=== PATIENT | female | born 1970 | race Caucasian/White ===

== ENCOUNTER 2018-01-17 08:32 | Emergency (ER) | payer MEDICAID, SELFPAY ==
[2018-01-17 08:38] VITALS: BP 110/51; PULSE 60; RESP 16; TEMP 36.5; O2SAT 100
[2018-01-17 08:46] LABS: Bilirubin Negative (Negative); Blood Moderate (Negative); Clarity Clear; Glucose Negative (Negative); Ketones Negative (Negative); Leukocyte Esterase Negative (Negative); Nitrite Negative (Negative); Specific Gravity 1.015 (1.005-1.025); Urobilinogen 0.2 EU/dL (Up TO 0.2)
--- NOTE | 2018-01-17 08:49 | DI.CT_ITS ---
SYMPTOM/DIAGNOSIS: LEFT FLANK PAIN ABDOMINAL, PELVIC CT 01/17 CT examination of the abdomen and pelvis was performed without contrast administration. Images obtained through the lung bases are unremarkable. The visualized portions of the liver and spleen appear normal. Gallbladder and bile ducts are CT normal. Abdominal aorta is of normal diameter. No gross abdominal adenopathy seen. No abdominal wall hernia seen. Appendix is normal. No evidence of diverticulitis or bowel obstruction. Adrenals and kidneys appear normal. No hydronephrosis, nephrolithiasis or ureterolithiasis. Urinary bladder is essentially empty. CONCLUSION: Negative abdominal and pelvic CT without contrast administration.
--- NOTE | 2018-01-17 08:51 | W.ED.GENAD ---
Discharge Plan Discharge Details Chief Complaint: FlankPain Primary Care Provider: Agustin Briceno ED Provider: Kaveh Funk Home Meds and New Rx's Prescriptions: No Action sumatriptan succinate [Imitrex] 50 MG tablet 50 mg PO PRN PRNRF: 0 Medical Decision Making Pleasant 47-year-old female with days of intermittent left flank pain that radiates to her groin. She is in some discomfort on exam and tender to percussion in the left flank. Concerning for left ureteral colic versus UTI/pyelonephritis. Patient had IV access established, given fluid bolus and analgesic. Further laboratory testing and CT imaging. She has + hematuria, labs otherwise reassuring. Improved with ketorolac. Patient's laboratories are essentially notable only for hematuria. Her CT did not reveal clear ureteral distention or calculus. She was referred for CT urogram. This reveals no mass or hydronephrosis. The distal portion of the left ureter there is question of 1 mm stone. Patient's pain improved. She is appropriate outpatient management of probable left ureteral colic While in the ED, the patient admitted to some increased depression and stress due to ongoing divorce proceedings and recent of her grandmother. She was seen by [place] and will be offered resources for community connections. She denies any suicidality. She stable for outpatient management at this time; to follow-up with outpatient counseling Lab Data Lab results reviewed: Yes I reviewed the patient's lab results. Laboratory Tests Range/Units 01/17/18 01/17/18 01/17/18 08:40 08:58 08:58 WBC (4.4-10.8) k/cumm 4.85 RBC (4.00-5.20) m/cumm 4.11 Hgb (12.0-15.5) g/dL 12.6 Hct (36.0-46.0) % 38.5 MCV (80-95) fL 93.7 MCH (27.0-33.0) pg 30.7 MCHC (32.0-36.0) g/dL 32.7 RDW (11.7-14.6) % 13.2 Plt Count (130-400) x1000/uL 282 MPV (8.0-11.0) fL 10.2 Immature Gran % 0.0 Neutrophils % 56.9 Lymphocytes % 30.9 Monocytes % 9.3 Eosinophils % 2.3 Basophils % 0.6 Absolute Neutrophils (1.2-6.7) k/cumm 2.76 Absolute Lymphocytes (1.2-3.4) k/cumm 1.50 Absolute Monocytes (0.11-0.7) k/cumm 0.45 Absolute Eosinophils (0.0-0.7) k/cumm 0.11 Absolute Basophils (0.0-0.2) k/cumm 0.03 Sodium (136-145) mmol/L 140 Potassium (3.5-5.1) mmol/L 3.5 Chloride (98-107) mmol/L 103 Carbon Dioxide (21.0-32.0) mmol/L 28.7 Anion Gap (3-11) mmol/L 8.3 BUN (7-18) mg/dL 11 Creatinine (0.55-1.02) mg/dL 0.77 Estimated GFR/1.73 m2 (mL/min/1.73m2) >= 60.00 Glucose (70-100) mg/dL 73 Calcium (8.5-10.1) mg/dL 9.3 Total Bilirubin (0.2-1.0) mg/dL 0.4 AST (15-37) U/L 11 L ALT (12-78) U/L 17 Alkaline Phosphatase (46-116) U/L 45 L Total Protein (6.4-8.2) g/dL 7.8 Albumin (3.4-5.0) g/dL 4.1 Urine Color (Yellow) Yellow Urine Clarity Clear Urine pH (5-8) 7.0 Ur Specific [place] (1.005-1.025) 1.015 Urine Protein (Negative) mg/dL Negative Urine Ketones (Negative) mg/dL Negative Urine Blood (Negative) Moderate H Urine Nitrite (Negative) Negative Urine Bilirubin (Negative) Negative Urine Urobilinogen (Up TO 0.2) EU/dL 0.2 Ur Leukocyte Esterase (Negative) Negative Urine RBC (0-2) 3-5 H Urine WBC (0-5) HPF 0-2 Ur Epithelial Cells (Negative) HPF Moderate Urine Crystals (Negative) HPF Negative Urine Bacteria (Negative) HPF Few Urine Casts (Negative) LPF Negative Urine Mucus (Negative) Trace Ur Culture Indicated? No Urine Glucose (Negative) mg/dL Negative HPI General Mode of arrival: ambulatory. Date/Time Provider Initiated Documentation: 01/17/18 08:40. Limitations to Documentation: no limitations. Information obtained by: patient. History of Present Illness 47 year old F presents to the emergency department with the chief complaint of Left flank pain, described as moderate and severe, Quality is described as sharp, and is localized to the abdomen and left. Patient abdomen and flank. Patient started experiencing this day(s) and it has been intermittent. No relieving factors improve symptom(s), No exacerbating factors reported . Patient notes denies fever/chills. Patient did receive the following treatments prior to arrival, NSAID HPI Narrative: 47-year-old female with stuttering episodes of severe colicky left flank pain that radiates to her groin over days time. Increased today at work and presents the ER. She has not had a fever or vomiting. She has had intermittent and irregular menses over the past months. Related Data Home Medications Medication Instructions Recorded Confirmed sumatriptan succinate [Imitrex] 50 mg PO PRN PRN 03/15/16 01/17/18 Allergies Allergy/AdvReac Type Severity Reaction Status Date / Time No Known Allergies Allergy Unverified 01/17/18 09:06 Review of Systems Review of Systems 8 systems reviewed and otherwise negative [facility] Social History Smoking/Tobacco Use Status: Never Exam Narrative Exam Narrative: GEN: awake, alert, oriented 3. Pleasant, well groomed, interactive, uncomfortable. HEAD: Normocephalic, atraumatic ENT: Mucous membranes moist, oropharynx unremarkable, External ear exam unremarkable EYES: PERRL, EOMI NECK: Full ROM, no RENA, no menigismus CHEST/RESP: Nontender, clear to auscultation bilateral, no wheeze/rhonchi/rales CARDIOVASCULAR: RRR, no murmur, rub chad. 2+ Rad pulse bilateral ABDOMEN: Soft, 4 quadrants tender to palpation without rebound or guarding, no mass. +Bowel sounds. Back: Left flank/CVA tenderness to percussion EXT: Full ROM, no edema, no rash Neuro: Grossly normal neurologic exam, conversant, interactive. Psych: Speech fluent, thoughts congruent, affect normal Course Lab/Test Results Lab/Test Results: Laboratory Tests Range/Units 01/17/18 08:40 Urine Color (Yellow) Yellow Urine Clarity Clear Urine pH (5-8) 7.0 Ur Specific [place] (1.005-1.025) 1.015 Urine Protein (Negative) mg/dL Negative Urine Ketones (Negative) mg/dL Negative Urine Blood (Negative) Moderate H Urine Nitrite (Negative) Negative Urine Bilirubin (Negative) Negative Urine Urobilinogen (Up TO 0.2) EU/dL 0.2 Ur Leukocyte Esterase (Negative) Negative Urine Glucose (Negative) mg/dL Negative
--- NOTE | 2018-01-17 08:54 | ED.GENADUL_ITS ---
Discharge Plan Discharge Details Chief Complaint: FlankPain Primary Care Provider: Agustin Briceno ED Provider: Kaveh Funk Home Meds and New Rx's Prescriptions: No Action sumatriptan succinate [Imitrex] 50 MG tablet 50 mg PO PRN PRNRF: 0 Medical Decision Making Pleasant 47-year-old female with days of intermittent left flank pain that radiates to her groin. She is in some discomfort on exam and tender to percussion in the left flank. Concerning for left ureteral colic versus UTI/ pyelonephritis. Patient had IV access established, given fluid bolus and analgesic. Further laboratory testing and CT imaging. She has + hematuria, labs otherwise reassuring. Improved with ketorolac. Patient's laboratories are essentially notable only for hematuria. Her CT did not reveal clear ureteral distention or calculus. She was referred for CT urogram. This reveals no mass or hydronephrosis. The distal portion of the left ureter there is question of 1 mm stone. Patient's pain improved. She is appropriate outpatient management of probable left ureteral colic While in the ED, the patient admitted to some increased depression and stress due to ongoing divorce proceedings and recent of her grandmother. She was seen by [place] and will be offered resources for community connections. She denies any suicidality. She stable for outpatient management at this time; to follow-up with outpatient counseling Lab Data Lab results reviewed: Yes I reviewed the patient's lab results. Laboratory Tests Range/Units 01/17/18 01/17/18 01/17/18 08:40 08:58 08:58 WBC (4.4-10.8) k/cumm 4.85 RBC (4.00-5.20) m/cumm 4.11 Hgb (12.0-15.5) g/dL 12.6 Hct (36.0-46.0) % 38.5 MCV (80-95) fL 93.7 MCH (27.0-33.0) pg 30.7 MCHC (32.0-36.0) g/dL 32.7 RDW (11.7-14.6) % 13.2 Plt Count (130-400) x1000/uL 282 MPV (8.0-11.0) fL 10.2 Immature Gran % 0.0 Neutrophils % 56.9 Lymphocytes % 30.9 Monocytes % 9.3 Eosinophils % 2.3 Basophils % 0.6 Absolute Neutrophils (1.2-6.7) k/cumm 2.76 Absolute Lymphocytes (1.2-3.4) k/cumm 1.50 Absolute Monocytes (0.11-0.7) k/cumm 0.45 Absolute Eosinophils (0.0-0.7) k/cumm 0.11 Absolute Basophils (0.0-0.2) k/cumm 0.03 Sodium (136-145) mmol/L 140 Potassium (3.5-5.1) mmol/L 3.5 Chloride (98-107) mmol/L 103 Carbon Dioxide (21.0-32.0) mmol/L 28.7 Anion Gap (3-11) mmol/L 8.3 BUN (7-18) mg/dL 11 Creatinine (0.55-1.02) mg/dL 0.77 Estimated GFR/1.73 m2 (mL/min/1.73m2) >= 60.00 Glucose (70-100) mg/dL 73 Calcium (8.5-10.1) mg/dL 9.3 Total Bilirubin (0.2-1.0) mg/dL 0.4 AST (15-37) U/L 11 L ALT (12-78) U/L 17 Alkaline Phosphatase (46-116) U/L 45 L Total Protein (6.4-8.2) g/dL 7.8 Albumin (3.4-5.0) g/dL 4.1 Urine Color (Yellow) Yellow Urine Clarity Clear Urine pH (5-8) 7.0 Ur Specific [place] (1.005-1.025) 1.015 Urine Protein (Negative) mg/dL Negative Urine Ketones (Negative) mg/dL Negative Urine Blood (Negative) Moderate H Urine Nitrite (Negative) Negative Urine Bilirubin (Negative) Negative Urine Urobilinogen (Up TO 0.2) EU/dL 0.2 Ur Leukocyte Esterase (Negative) Negative Urine RBC (0-2) 3-5 H Urine WBC (0-5) HPF 0-2 Ur Epithelial Cells (Negative) HPF Moderate Urine Crystals (Negative) HPF Negative Urine Bacteria (Negative) HPF Few Urine Casts (Negative) LPF Negative Urine Mucus (Negative) Trace Ur Culture Indicated? No Urine Glucose (Negative) mg/dL Negative HPI General Mode of arrival: ambulatory . Date/Time Provider Initiated Documentation: 01/17/18 08:40 . Limitations to Documentation: no limitations . Information obtained by: patient . History of Present Illness 47 year old F presents to the emergency department with the chief complaint of Left flank pain, described as moderate and severe, Quality is described as sharp, and is localized to the abdomen and left. Patient abdomen and flank. Patient started experiencing this day(s) and it has been intermittent. No relieving factors improve symptom(s), No exacerbating factors reported . Patient notes denies fever/chills. Patient did receive the following treatments prior to arrival, NSAID HPI Narrative: 47-year-old female with stuttering episodes of severe colicky left flank pain that radiates to her groin over days time. Increased today at work and presents the ER. She has not had a fever or vomiting. She has had intermittent and irregular menses over the past months. Related Data Home Medications Medication Instructions Recorded Confirmed sumatriptan succinate [Imitrex] 50 mg PO PRN PRN 03/15/16 01/17/18 Allergies Allergy/AdvReac Type Severity Reaction Status Date / Time No Known Allergies Allergy Unverified 01/17/18 09:06 Review of Systems Review of Systems 8 systems reviewed and otherwise negative [facility] Social History Smoking/Tobacco Use Status: Never Exam Narrative Exam Narrative: GEN: awake, alert, oriented 3. Pleasant, well groomed, interactive, uncomfortable. HEAD: Normocephalic, atraumatic ENT: Mucous membranes moist, oropharynx unremarkable, External ear exam unremarkable EYES: PERRL, EOMI NECK: Full ROM, no RENA, no menigismus CHEST/RESP: Nontender, clear to auscultation bilateral, no wheeze/rhonchi/rales CARDIOVASCULAR: RRR, no murmur, rub chad. 2+ Rad pulse bilateral ABDOMEN: Soft, 4 quadrants tender to palpation without rebound or guarding, no mass. +Bowel sounds. Back: Left flank/CVA tenderness to percussion EXT: Full ROM, no edema, no rash Neuro: Grossly normal neurologic exam, conversant, interactive. Psych: Speech fluent, thoughts congruent, affect normal Course Lab/Test Results Lab/Test Results: Laboratory Tests Range/Units 01/17/18 08:40 Urine Color (Yellow) Yellow Urine Clarity Clear Urine pH (5-8) 7.0 Ur Specific [place] (1.005-1.025) 1.015 Urine Protein (Negative) mg/dL Negative Urine Ketones (Negative) mg/dL Negative Urine Blood (Negative) Moderate H Urine Nitrite (Negative) Negative Urine Bilirubin (Negative) Negative Urine Urobilinogen (Up TO 0.2) EU/dL 0.2 Ur Leukocyte Esterase (Negative) Negative Urine Glucose (Negative) mg/dL Negative
[2018-01-17 08:56] LABS: Bacteria Few HPF (Negative); C & S Indicated? No; Casts Negative LPF (Negative); Crystals Negative HPF (Negative); Epithelial Cells Moderate HPF (Negative); Mucus Trace (Negative); WBC 0-2 HPF (0-5)
[2018-01-17] MEDS: Normal Saline 1,000 ML 1000 ML IV (09:00)
[2018-01-17] MEDS: Ketorolac 30 MG/ML VIAL IVP (09:05)
[2018-01-17 09:06] LABS: Absolute Basophil Count 0.03 k/cumm (0.0-0.2); Absolute Eosinophil Count 0.11 k/cumm (0.0-0.7); Absolute Monocyte Count 0.45 k/cumm (0.11-0.7); Absolute Neutrophil Count 2.76 k/cumm (1.2-6.7); Basophils % 0.6; Eosinophils % 2.3; HCT 38.5 % (36.0-46.0); HGB 12.6 g/dL (12.0-15.5); Lymphocytes % 30.9; Mean Corp. HGB Concentration 32.7 g/dL (32.0-36.0); Mean Corpuscular Hemoglobin 30.7 pg (27.0-33.0); Mean Corpuscular Volume 93.7 fL (80-95); Mean Platelet Volume 10.2 fL (8.0-11.0); Monocytes % 9.3; Neutrophils % 56.9; Platelet Count 282 x1000/uL (130-400); RBC 4.11 m/cumm (4.00-5.20); RBC Distribution Width 13.2 % (11.7-14.6); White Blood Cell Count 4.85 k/cumm (4.4-10.8)
[2018-01-17 09:20] LABS: ALT 17 U/L (12-78); AST 11 U/L (15-37); Albumin 4.1 g/dL (3.4-5.0); Alkaline Phosphatase 45 U/L (46-116); Anion Gap 8.3 mmol/L (3-11); BUN 11 mg/dL (7-18); Bilirubin, Total 0.4 mg/dL (0.2-1.0); CO2 28.7 mmol/L (21.0-32.0); CREATININE 0.77 mg/dL (0.55-1.02); Calcium 9.3 mg/dL (8.5-10.1); Chloride 103 mmol/L (98-107); Glucose 73 mg/dL (70-100); Potassium 3.5 mmol/L (3.5-5.1); Sodium 140 mmol/L (136-145); Total Protein 7.8 g/dL (6.4-8.2)
[2018-01-17] MEDS: HYDROmorphone 2 MG/ML VIAL 0.5 MG IVP (09:59)
--- NOTE | 2018-01-17 10:15 | DI.CT_ITS ---
SYMPTOM/DIAGNOSIS: LT PAIN AND HEMATURIA CT UROGRAM: 01/17 CT urography was performed to compliment the noncontrast abdominal and pelvic CT obtained earlier today. Multiple pelvic phleboliths are present and it was impossible to entirely exclude intra-ureteral stone on the noncontrast examination. Venous phase, 7 minute delay, and 15 minute delay imaging was performed. The right hepatic lobe contains approximately 1 cm in diameter enhancing lesion on venous phase imaging which becomes iso-attenuating with surrounding hepatic parenchyma on 7-minute delayed imaging consistent with hepatic hemangioma Otherwise, liver, spleen, pancreas and adrenals are unremarkable in appearance. Gallbladder and bile ducts are CT normal. No abdominal or pelvic adenopathy seen. No abdominal wall hernia seen. Appendix is normal and no focal bowel pathology is seen. There is normal symmetrical enhancement of renal cortical parenchyma bilaterally on venous and delayed phase imaging. No renal mass identified. Probable tiny right renal cortical cyst noted. There is no hydronephrosis or hydroureter. No intraluminal filling defect of the collecting systems or ureters seen. The entire right ureter is opacified and appears normal with visible opacified jet of urine in the urinary bladder. Distal left ureter is poorly opacified on 7 and 15 minute delayed images. The course of the ureter appears to be separate from although directly adjacent to existing noted pelvic phleboliths. On the 15 minute delay images only there is a tiny marisol of high attenuation at the ureteral orifice of the urinary bladder. The possibility of tiny calcification which has traversed the ureter to lie in the intramural portion of the distal ureter could not be entirely excluded. Again, no ureteral opacified jet identified. CONCLUSION: Findings suspicious for very tiny, perhaps 1 mm in diameter, nonobstructing stone of the distal left ureter. Alternatively the findings may represent transient opacified urine. Clinical correlation requested.
[2018-01-17] MEDS: Omnipaque 350 MG/ML 100 ML BTL IJ (11:22)
[2018-01-17 11:35] VITALS: BP 120/51; PULSE 63; RESP 17; TEMP 36.6; O2SAT 100
== END 2018-01-17 12:20 | disposition home or self-care (01) ==
PROVIDERS: Emergency Provider Emergency Medicine; PCP Nurse Practitioner Family
DX: R31.9 Hematuria, unspecified (principal); N20.1 Calculus of ureter
CPT/HCPCS: 36415; 80053; 81025; 96361; 96374; 96375; 99285; 74176; 74177; 81003; 81015; 85025; 99284; J1885; J3490

== ENCOUNTER 2018-03-04 07:15 | Emergency (ER) | payer MEDICAID, SELFPAY ==
[2018-03-04] VITALS (19 sets, daily range): BP systolic 82–107; BP diastolic 39–59; PULSE 63–84; RESP 12–32; TEMP 36.4; O2SAT 99–100
[2018-03-04] MEDS: Normal Saline 1,000 ML 150 ML IV (07:20)
--- NOTE | 2018-03-04 07:29 | DI.CT_ITS ---
SYMPTOM/DIAGNOSIS: WORSENING HEADACHE NONCONTRAST HEAD CT: A noncontrast cranial CT was performed. The ventricular system is normal in appearance. There is no evidence of an intracranial mass lesion. There is no evidence of a subdural or epidural hematoma. No focal areas of decreased attenuation are seen. CONCLUSION: Normal noncontrast Cranial CT.
[2018-03-04 07:42] LABS: HGB 12.8 g/dL (12.0-15.5); Mean Corp. HGB Concentration 33.7 g/dL (32.0-36.0); Mean Corpuscular Hemoglobin 30.8 pg (27.0-33.0); Mean Corpuscular Volume 91.6 fL (80-95); Platelet Count 224 x1000/uL (130-400); RBC 4.15 m/cumm (4.00-5.20); White Blood Cell Count 6.34 k/cumm (4.4-10.8)
--- NOTE | 2018-03-04 07:43 | ED.GENADUL_ITS ---
Discharge Plan Disposition Patient Disposition: HOME Discharge Details Chief Complaint: Headache Clinical Impression: Headache, Hypokalemia, Syncope Primary Care Provider: Agustin Briceno ED Provider: Arun Del Rosario Home Meds and New Rx's Prescriptions: No Action sumatriptan succinate [Imitrex] 50 MG tablet 50 mg PO PRN PRNRF: 0 Antianxiety Med 20 mg PO DAILY RF: 0 Discharge Instructions Instructions: Hypokalemia (ED), Syncope (ED), Against Medical Advice (ED) Additional Instructions: Because of your headache and episode of passing out was not determined today. Testing that was performed was nondiagnostic. Additional testing including a lumbar puncture was recommended and refused. Please contact your primary care physician to arrange follow-up. Call on Tuesday. Return to the ER for further diagnostic testing at any time or for any worsening or new concerning symptoms. Referrals: Agustin Briceno [Primary Care Provider] - Discharge Data Discharge Date/Time-TO BE ENTERED AT DEPARTURE: 03/04/18 10:39 Medical Decision Making <Jackson Rodriguez MD - Last Filed: 03/04/18 08:25> Patient here with severe headache. She reports this is different than her typical migraines. She was reporting possibility of syncope while in the shower. She is neurologically intact. Vital signs are good. IV is established and fluids started. Reglan and Benadryl ordered but will hold off on Toradol until CT scan is complete. EKG is sinus rhythm at a rate of 67. Normal axis and intervals. No acute ST changes noted. Laboratory studies including CBC and coags sent in case consideration for LP needed. Those are fine. BMP with a low potassium which will be replaced. Patient will be turned over to oncoming provider, Dr. Madi Del Rosario. ECG Data Attestation: I personally reviewed and interpreted this ECG (s) as follows: Prior ECG tracings: not available for review Interpretation: Normal sinus rhythm at 67 with normal axis and intervals. No acute ST changes. <Arun Del Rosario MD - Last Filed: 03/09/18 09:16> 8:00 -- Care signed out by Dr. Rodriguez - plan to follow-up on CT and reassess. Hypokalemia was addressed with IV and PO potassium. 9:30 --CT head interpreted by radiology: No acute intracranial abnormality. Patient reassessed and notes significant improvement in her headache. I reviewed results with the patient and recommended that she have a lumbar puncture. I reviewed the risks and benefits of lumbar puncture with the patient. I specifically explained my concern for acute life-threatening hemorrhage that would go undiagnosed without the procedure given lowered sensitivity of CT imaging at this point. Questions that the patient had were addressed. Patient refuses to have lumbar puncture at this time. Patient provided informed refusal and has capacity to make this decision. I again reiterated my concerns and ensure that the patient understood them and she still refused. I encouraged the patient to return at any time for further diagnostic testing and to follow-up with her primary care physician addie. HPI <Jackson Rodriguez MD - Last Filed: 03/04/18 08:25> General Mode of arrival: EMS . Date/Time Provider Initiated Documentation: 03/04/18 07:28 . Limitations to Documentation: no limitations . Information obtained by: patient . HPI Narrative: Patient presents by ambulance with headache. Patient has history of migraines. She states this headache seems different to her. It started yesterday as a mild headache but has got progressively worse. She has had nausea and diarrhea. She feels weak all over. She tried taking a shower this morning and thinks she passed out. She continues to have severe headache. She complains that it hurts to move her eyes. There has been no fevers, chills, URI type symptoms. There is no focal weakness chest general weakness. There is no neck pain. There is no numbness or tingling. Related Data Home Medications Medication Instructions Recorded Confirmed sumatriptan succinate [Imitrex] 50 mg PO PRN PRN 03/15/16 03/04/18 Antianxiety Med 20 mg PO DAILY 03/04/18 Allergies Allergy/AdvReac Type Severity Reaction Status Date / Time No Known Allergies Allergy Unverified 03/04/18 07:27 General Stated Complaint: Headache STEPAN: 3 Review of Systems <Jackson Rodriguez MD - Last Filed: 03/04/18 08:25> Constitutional Denies chills, Denies fever(s), Reports headache(s), Reports malaise and Reports weakness Eyes Denies diplopia, Denies loss of vision and Reports eye pain (hurts to move eyes) ENT Denies vertigo, Denies otalgia, Reports facial pain, Reports headache(s), Denies neck pain and Denies sore throat Cardiovascular Denies chest pain, Reports syncope, Denies leg edema and Denies dyspnea Respiratory Denies cough and Denies dyspnea Gastrointestinal Denies abdominal pain, Reports diarrhea, Reports nausea and Denies vomiting Genitourinary Denies hematuria, Denies dysuria and Denies pelvic pain Musculoskeletal Denies back pain, Denies myalgias, Denies arthralgias and Denies neck pain Integumentary/Breasts Denies rash Neurologic Denies vertigo, Reports syncope, Reports headache(s), Denies focal weakness, Denies loss of vision, Denies seizure-like activity and Reports weakness Exam <Jackson Rodriguez MD - Last Filed: 03/04/18 08:25> Const General: cooperative, uncomfortable and well developed Nutritional Appearance: well nourished Orientation: alert and oriented x3 HENMT Head: normocephalic and atraumatic Eyes Pupils: PERRL EOM: EOM intact bilaterally Neck Neck: trachea midline and supple Resp Effort & Inspection: normal respiratory effort Auscultation: clear to auscultation bilaterally Cardio Rate: regular rate Rhythm: regular rhythm Heart Sounds: S1 normal and S2 normal GI Palpation: soft and nontender Skin General skin exam: no rashes or lesions noted Neuro General: alert, oriented x3, moves all extremities, no focal motor deficits and CN's II-XI intact bilaterally Sensory Exam: no sensory deficits noted Extrem General: normal to inspection and full ROM Course <Jackson Rodriguez MD - Last Filed: 03/04/18 08:25> Vital Signs Temperature 97.5 F L 03/04/18 07:20 Pulse 68 03/04/18 07:20 Respiratory Rate 23 03/04/18 07:20 Blood Pressure 91/52 L 03/04/18 07:20 Pulse Oximetry 100 03/04/18 07:20 Temperature 97.5 F L 03/04/18 07:20 Temperature Source Skin 03/04/18 07:20 Pulse 68 03/04/18 07:20 Respiratory Rate 23 03/04/18 07:20 Respiratory Effort Non-Labored 03/04/18 07:20 Blood Pressure 91/52 L 03/04/18 07:20 Blood Pressure Position Supine 03/04/18 07:20 Pulse Oximetry 100 03/04/18 07:20 Oxygen Delivery Method Room Air 03/04/18 07:20 Oxygen Flow Rate 0 03/04/18 07:20 Pain Level 9 03/04/18 07:20 Sign Out <Jackson Rodriguez MD - Last Filed: 03/04/18 08:25> Sign Out Data: Sign Out Comment: pending CT Last updated by Jackson Rodriguez MD at 03/04/18 08:15
[2018-03-04] MEDS: diphenhydrAMINE 25 MG CAP PO (07:45)
[2018-03-04] MEDS: Metoclopramide 10 MG/2 ML VIAL IVP (07:45)
[2018-03-04 07:54] LABS: Anion Gap 11.2 mmol/L (3-11); BUN 7 mg/dL (7-18); CO2 24.8 mmol/L (21.0-32.0); CREATININE 0.88 mg/dL (0.55-1.02); Chloride 101 mmol/L (98-107); Glucose 111 mg/dL (70-100); Sodium 137 mmol/L (136-145)
[2018-03-04 07:55] LABS: INR 1.1 (1.0-3.5); PTT Activated 21.6 sec (21.0-31.4); Prothrombin Time 10.5 sec (9.3-10.8)
[2018-03-04] MEDS: POTASSIUM CHLORIDE 10 MEQ/100 ML BAG 100 MEQ IVPB (08:17)
--- NOTE | 2018-03-04 08:39 | DI.VRAD_ITS ---
EXAM: CT Head Without Intravenous Contrast EXAM DATE/TIME: 03/04/2018 7:35 AM CLINICAL HISTORY: 47 years old, female; Pain; Headache; Headache not specified; Patient HX: Worsening headache. TECHNIQUE: Axial computed tomography images of the head/brain without intravenous contrast. All CT scans at this facility use at least one of these dose optimization techniques: automated exposure control; mA and/or kV adjustment per patient size (includes targeted exams where dose is matched to clinical indication); or iterative reconstruction. Coronal and sagittal reformatted images were created and reviewed. COMPARISON: No relevant prior studies available. FINDINGS: Brain: Normal. No hemorrhage. No significant white matter disease. No edema. Ventricles: Normal. No ventriculomegaly. Bones/joints: Normal. No acute fracture. Sinuses: Normal as visualized. No acute sinusitis. Mastoid air cells: Normal as visualized. No mastoid effusion. Soft tissues: Normal. IMPRESSION: No acute intracranial abnormality. Dictated and Authenticated by: Peyton Barnes MD. Ordering:ALEX GILMAN MD
[2018-03-04] MEDS: Potassium Chloride 10 MEQ TABCR 20 MEQ PO (10:01)
--- NOTE | 2018-03-04 10:28 | NUR.NOTE ---
Normotensive BP cuff was too large. ED provider Dr Del Rosario notified. Nursing Note:
== END 2018-03-04 10:39 | disposition home or self-care (01) ==
PROVIDERS: Emergency Medicine; Emergency Provider Student in an Organized Health Care Education/Training Program; PCP Nurse Practitioner Family
DX: R51 Headache (principal); E87.6 Hypokalemia; R11.0 Nausea; R19.7 Diarrhea, unspecified; Z53.29 Procedure and treatment not carried out because of patient's decision for other reasons; R55 Syncope and collapse
CPT/HCPCS: 36415; 80048; 81025; 85027; 93005; 96361; 96365; 96375; 99285; 70450; 85610; 85730; 93010; 99284; J2765; J3480

== ENCOUNTER 2021-06-08 10:16 | Emergency (ER) | payer BC, SELFPAY ==
[2021-06-08 10:21] VITALS: BP 96/44; PULSE 70; RESP 16; TEMP 36.4; O2SAT 100
--- NOTE | 2021-06-08 10:45 | DI.RAD_ITS ---
Exam(s) XR FOOT LT COMPLETE EXAM: XR FOOT LT COMPLETE CLINICAL HISTORY: ? fb base of 4th/5th digit. TECHNIQUE: 2D digital imaging was performed. COMPARISON: No exams were available for comparison FINDINGS: There is no evidence of fracture or diastasis of the Lisfranc joint. Bone density normal. No osseou s lesions nor erosions. No radiopaque foreign body seen. IMPRESSION: No significant radiographic findings. No radiopaque foreign body, as per request. DATA REPOSITORY: RADIATION DOSE DELIVERED:
--- NOTE | 2021-06-08 10:56 | W.ED.GENAD ---
Discharge Plan Disposition Patient Disposition: HOME Condition: Stable Discharge Details Clinical Impression: Finger infection, Foot pain Primary Care Provider: Cherie Borden ED Provider: Jeison Pedraza Home Meds and New Rx's Prescriptions: New cephalexin 500 mg capsule 500 mg PO QID 10 Days Qty: 40 0RF Continued sumatriptan succinate [Imitrex] 50 MG tablet 50 mg PO PRN PRN0RF Discharge Instructions Instructions: Cellulitis (ED) Additional Instructions: Cephalexin as directed. Antibiotic ointment to your finger wound at least twice daily. Wear splint to avoid bending your finger and tearing open the laceration. No obvious foreign body noted in your foot. After using shared decision-making, decision to use warm soaks, compresses, looking solve, etc. was made as opposed to exploratory incision at this time. Please watch for new or worsening symptoms and return to the ER for any concerns. Lastly, please contact your primary care provider tomorrow to discuss your ER visit need for outpatient reevaluation Discharge Data Discharge Date/Time-TO BE ENTERED AT DEPARTURE: 06/08/21 12:22 Medical Decision Making 50-year-old female presents concerned for a left finger infection as well as a potential foreign body to her left foot. Triage reports right index finger but this is in fact her left index finger. She states after removing the 2 sutures earlier today her finger is looking improved. I do question whether this could be secondary irritation to the sutures versus early cellulitis. Will provide a prescription of Keflex. Given she took her sutures out a few days early, will provide antibiotic dressing and a finger splint to avoid reopening the laceration. Given her left foot complaint will obtain x-ray for potential foreign body. Clinically I do not see a foreign body nor can I palpate a foreign body. No evidence of cellulitis X-ray of left foot is unremarkable per radiology. Discussed x-ray findings with patient. We discussed options. We did discussed attempting exploratory potential foreign body removal here in the ER, injecting lidocaine, making a small incision with scalpel and exploring. We also discussed a more conservative approach as I cannot confirm there is a foreign body. We discussed Epson salt soaks, warm compresses, wicking salves, etc. Patient is comfortable taking a more conservative approach and understands that if she continues to have discomfort she may need to return to the ER or follow-up with her primary care provider. Standard discharge and return precautions were provided. This documentation was generated using [employer] dictation system, please disregard any oddities of phrase or misspellings. Medical Records Medical records reviewed: Yes I reviewed the patient's medical records. Imaging Data Radiologic Study: Attestation: I personally reviewed and interpreted this imaging study as follows: Imaging: X-Ray Radiologist's impression: Exam(s) XR FOOT LT COMPLETE EXAM: XR FOOT LT COMPLETE CLINICAL HISTORY: ? fb base of 4th/5th digit. TECHNIQUE: 2D digital imaging was performed. COMPARISON: No exams were available for comparison FINDINGS: There is no evidence of fracture or diastasis of the Lisfranc joint. Bone density normal. No osseous lesions nor erosions. No radiopaque foreign body seen. IMPRESSION: No significant radiographic findings. No radiopaque foreign body, as per request. HPI General Mode of arrival: ambulatory. Date/Time Provider Initiated Documentation: 06/08/21 10:28. Limitations to Documentation: no limitations. Information obtained by: patient. HPI Narrative: This is a 50-year-old female, [id number], presenting to the ER for concern of a left index finger infection and potential foreign body of the left foot. She states last Tuesday she cut her left finger with scissors, sequently seen at [facility], had 2 sutures placed. The area has gotten increasingly red, painful, she removed the 2 sutures today reports that there was pus that came out. She states after taking the sutures out overall it looks improved but is still slightly painful and slightly red. Last week her cat knocked over a vase, she thought she cleaned it up well but then this morning woke up with left foot pain, felt as though there was a foreign body. She attempted to remove the foreign body herself but was unsuccessful. She denies fever, numbness, tingling, weakness. Tetanus status is up-to-date. Related Data Home Medications Medication Instructions Recorded Confirmed sumatriptan succinate 50 mg tablet 50 mg PO PRN PRN 03/15/16 06/08/21 (Imitrex) cephalexin 500 mg capsule 500 mg PO QID 10 Days #40 cap 06/08/21 Previous Rx's Medication Instructions Recorded cephalexin 500 mg capsule 500 mg PO QID 10 Days #40 cap 06/08/21 Allergies Allergy/AdvReac Type Severity Reaction Status Date / Time No Known Allergies Allergy Unverified 06/08/21 10:26 General Stated Complaint: Laceration STEPAN: 3 Review of Systems Constitutional Constitutional: Denies fever(s) and Denies weakness Musculoskeletal Musculoskeletal: Denies numbness and Denies tingling Integumentary/Breasts Skin/Breast: Reports erythema Neurologic Neurologic: Denies numbness, Denies tingling and Denies weakness PFSH All Active Problems Finger infection (Acute) Foot pain (Acute) Medical History Migraine Surgical History H/O cardiac radiofrequency ablation Previous section Social History Smoking/Tobacco Use Status: Never Smoking risk assessment performed?: Yes Alcohol Intake: never Drug use: Never Substance use type: does not use Do you feel safe at home: Yes Do you feel safe in your relationship?: Yes Exam Const General: cooperative, healthy appearing, comfortable and no acute distress Orientation: alert and awake HENMT Head: normal to inspection, normocephalic and atraumatic Eyes Conjunctivae: conjunctivae normal Neck Neck: normal visual inspection, trachea midline and supple Resp Effort & Inspection: normal respiratory effort and able to speak in complete sentences Cardio Rate: regular rate Rhythm: regular rhythm Skin General skin exam: erythema Neuro General: patient alert, patient awake, moves all extremities and no focal motor deficits Speech: speech normal Gait: antalgic Motor: muscle tone normal throughout Sensory Exam: no sensory deficits noted Extrem General: full ROM and capillary refill normal Hand/finger images: 1. There is a well approximated 1.5 cm laceration. Minimal localized swelling, erythema, tenderness without induration, fluctuance or drainage. Neuro, vascular, tendon intact. Full range of motion. Normal capillary refill. No lymphangitic streaking Ankle/foot/toe images: 1. There are 2 superficial wounds-abrasions, patient reports that these are self-inflicted as she was attempting to potentially remove the foreign body. There is diffuse mild discomfort but there is no swelling, erythema, warmth, obvious foreign body. Neuro, vascular, tendon intact. Psych Appearance: grossly normal Mental Status: mental status grossly normal Course Vital Signs Vital signs: Vital Signs Temperature 36.4 C L 06/08/21 10:21 Pulse 70 06/08/21 10:21 Respiratory Rate 16 06/08/21 10:21 Blood Pressure 96/44 L 06/08/21 10:21 Pulse Oximetry 100 06/08/21 10:21 Temperature 36.4 C L 06/08/21 10:21 Temperature Source Temporal Artery Scan 06/08/21 10:21 Pulse 70 06/08/21 10:21 Respiratory Rate 16 06/08/21 10:21 Respiratory Effort Non-Labored 06/08/21 10:24 Blood Pressure 96/44 L 06/08/21 10:21 Blood Pressure Position Sitting 06/08/21 10:21 Pulse Oximetry 100 06/08/21 10:21 Oxygen Delivery Method Room Air 06/08/21 10:21 Oxygen Flow Rate 0 06/08/21 10:21 Pain Level 7 06/08/21 10:21
[2021-06-08 12:58] VITALS: BP 118/86; PULSE 71; TEMP 36.5; O2SAT 98
== END 2021-06-08 12:22 | disposition home or self-care (01) ==
PROVIDERS: Emergency Provider Physician Assistant; PCP Nurse Practitioner Family
DX: S61.210A Laceration without foreign body of right index finger without damage to nail, initial encounter (principal); L03.012 Cellulitis of left finger; M79.672 Pain in left foot
CPT/HCPCS: 29130; 99283; 73630

== ENCOUNTER 2021-08-18 17:12 | Outpatient (REF) | payer BC, SELFPAY ==
--- NOTE | 2021-08-18 16:15 | PAPFT_PTH ---
PATIENT: Swetha Cagle LOC: [facility] U#:[id number] AGE/SX: 51/F ROOM: RE08/18/[address]: Monae Stringer : 1970 BED: DIS: 08/18/2021 SPEC #: [id number] RECD: 08/19/21 12:27 STATUS: SONNY RECesar #: [id number] RONIT: 08/18/21 16:[address]: Monae Stringer DEPT: [facility] Cytology RECD BY: Tova Blevins ENTERED: 08/19/21 12:29 SP TYPE: PAPFT OTHR DR: Cherie Borden Tissues: 1 - CX/ENDOCX FOR PAP SMEARS Procedures: PAP THIN PREP/UVM Screening HPV DNA PROBE Comments: [id number] (CHLAMYDIA/GC)
[2021-08-21 16:38] LABS: Chlamydia Result Negative (Negative); GC Result Negative (Negative)
== END 2021-08-18 17:13 | disposition home or self-care (01) ==
LOC: LBN 17:12
PROVIDERS: PCP Nurse Practitioner Family; Visit Provider Nurse Practitioner Family
DX: Z11.3 Encounter for screening for infections with a predominantly sexual mode of transmission (principal); Z12.4 Encounter for screening for malignant neoplasm of cervix; Z11.51 Encounter for screening for human papillomavirus (HPV); Z00.00 Encounter for general adult medical examination without abnormal findings; Z01.419 Encounter for gynecological examination (general) (routine) without abnormal findings
CPT/HCPCS: 87491; 87591; 88142; 87624

== ENCOUNTER → 2021-10-06 00:23 | Outpatient (CLI) | payer BC, SELFPAY | PROVIDERS: PCP Nurse Practitioner Family; Visit Provider Nurse Practitioner Family ==

== ENCOUNTER 2022-01-13 16:34 | Outpatient (REF) | payer BC, SELFPAY | END 2022-01-13 16:35 | disposition home or self-care (01) | LOC: LBN 16:34 | PROVIDERS: PCP Nurse Practitioner Family; Visit Provider Family Medicine | DX: Z00.00 Encounter for general adult medical examination without abnormal findings (principal); R35.0 Frequency of micturition; M25.519 Pain in unspecified shoulder | CPT/HCPCS: 87077; 87086; 87186 ==

== ENCOUNTER 2022-05-01 17:21 | Outpatient (REF) | payer BC, SELFPAY ==
[2022-05-04 13:22] LABS: COVID-19 RT-PCR UVMMC Result Negative (Negative)
== END 2022-05-01 17:22 | disposition home or self-care (01) ==
LOC: LBN 17:21
PROVIDERS: PCP Nurse Practitioner Family; Visit Provider Physician Assistant Medical
DX: Z20.822 Contact with and (suspected) exposure to COVID-19 (principal); J06.9 Acute upper respiratory infection, unspecified
CPT/HCPCS: U0003

== ENCOUNTER 2022-05-15 09:01 | Emergency (ER) | payer BC, SELFPAY ==
[2022-05-15] VITALS (24 sets, daily range): BP systolic 82–121; BP diastolic 23–68; PULSE 71–84; RESP 18; TEMP 37.1; O2SAT 98–100
[2022-05-15 09:20] LABS: Abs Immature Grans 0.01 10^3/uL (0.0-0.06); Absolute Basophil Count 0.03 10^3/uL (0.0-0.2); Absolute Lymphocyte Count 0.58 10^3/uL (1.2-3.4); Absolute Monocyte Count 0.48 10^3/uL (0.1-0.8); Absolute Neutrophil Count 4.84 10^3/uL (1.2-6.7); Basophils % 0.5; HCT 36.4 % (36.0-46.0); HGB 11.9 g/dL (11.2-15.7); Immature Grans % 0.2; Lymphocytes % 9.8; MCH 30.4 pg (27.0-33.0); MCHC 32.7 % (32.0-36.0); MCV 93 fL (80-95); MPV 9.8 fL (8.0-11.0); Monocytes % 8.1; Neutrophils % 81.4; Platelet Count 222 10^3/uL (130-400); RBC 3.91 10^6/uL (3.93-5.22); RDW 13.2 % (11.7-14.6); RDW-SD 45.1 fL; WBC 5.94 10^3/uL (4.4-10.8)
[2022-05-15 09:36] LABS: ALT 17 U/L (14-59); AST 15 U/L (15-37); Albumin 4.1 g/dL (3.4-5.0); Alkaline Phosphatase 52 U/L (46-116); Anion Gap 4.7 mmol/L (3-11); BUN 9 mg/dL (7-18); Bilirubin, Total 0.3 mg/dL (0.2-1.0); CO2 26.3 mmol/L (21.0-32.0); CREATININE 0.7 mg/dL (0.55-1.02); Calcium 8.6 mg/dL (8.5-10.1); Chloride 100 mmol/L (98-107); Glucose 145 mg/dL (74-106); Potassium 3.1 mmol/L (3.5-5.1); Sodium 131 mmol/L (136-145); Total Protein 7.6 g/dL (6.4-8.2)
--- NOTE | 2022-05-15 09:40 | ED.GENADUL_ITS ---
Discharge Plan Disposition Patient Disposition: Home Condition: Improving Discharge Details Clinical Impression: COVID, Hypokalemia, Cephalgia Primary Care Provider: Monae Stringer ED Provider: Jeison Pedraza Home Meds and New Rx's Prescriptions: New ondansetron 4 mg tablet,disintegrating 4 mg PO TID PRN3 Days Qty: 9 0RF Continued sumatriptan succinate [Imitrex] 50 MG tablet 50 mg PO PRN PRN Discharge Instructions Instructions: Hypokalemia (ED), General Headache (ED), COVID-19 (Coronavirus Disease 2019) (ED) Additional Instructions: Your evaluation is positive for COVID. Paxlovid as directed. Zofran as directed. Plenty of fluids to avoid dehydration. [id number] medications as directed for symptomatic control. As we discussed, your potassium was low, was replenished here in the ER. Be sure to have food and drink rich in potassium. I would like you to contact your primary care provider on Tuesday to discuss your ER visit and need for outpatient reevaluation. Please also discuss your low potassium, it appears as though it has been low in the past and if this is consistent you may require calcium supplementation on a regular basis. Please watch for new or worsening symptoms and return to the ER for any concerns. Medical Decision Making This is a 51-year-old female who reports past medical history of migraines presenting to the ER for evaluation of global headache worse in the frontal region that began yesterday, gradually associated with myalgias, nausea vomiting, photosensitivity. She has not taken any medication for her symptoms. She reports a mild dry cough as well. Clinically she appears neurologically intact, hemodynamically stable, her presentation is not consistent with a thunderclap headache, nuchal rigidity, etc. Patient does state that her typical migraine is global but worse in the right side, this is slightly different. She also tells me that she has had a migraine so severe that it has caused her to go to the ER previously, this feels similar to that. Based upon her overall presentation with the dry cough, myalgias, headache, will obtain IV access, give a migraine cocktail as well as IV fluids, will obtain routine screening laboratory values and a flu, COVID, RSV swab. I see no clear indication to init iate CT imaging of brain or discuss LP at this time. Patient given IV Toradol, Compazine, Benadryl, normal saline, upon reevaluation she reports her symptoms are improving. She is beginning to keep her eyes open while talking with me. No vomiting. Laboratory values reveal no evidence of leukocytosis. Potassium was 3.1. We will provide 40 p.o. potassium. When reviewing previous laboratories, granted there 5 years ago, she had hypokalemia at that time as well. COVID positive. Patient reports that she is fully vaccinated. Flu and RSV negative Discussed options. She would like to proceed with Paxlovid. We will also provide p.o. Tylenol. Urinalysis reveals ketones, she is receiving IV fluid. Greater than 50 red cells, moderate blood. Patient denies any abdominal pain, dysuria. Negative nitrate and leuk esterase. 3-5 white cells. Many epithelial cells. Patient reports significant improvement of her overall symptoms. Reports that her nausea has resolved completely, no vomiting while under my care. She is now able to keep her eyes open and reports that her photosensitivity is nearly completely gone. She states now her overall headache is worse on the right side and that is consistent with her typical migraine, her discomfort has greatly improved from her initial presentation. She is comfortable with discharge. Remains neurologically intact, hemodynamically stable. Standard discharge and return precautions were provided. Patient understands, is agreeable to this plan, and has no additional questions or concerns upon discharge. This documentation was generated using [employer]ation system, please disregard any oddities of phrase or misspellings. Medical Records Medical records reviewed: Yes I reviewed the patient's medical records. Lab Data Lab results reviewed: Yes I reviewed the patient's lab results. Labs: Laboratory Tests Range/Units 05/15/22 05/15/22 05/15/22 09:10 09:10 09:15 WBC (4.4-10.8) 10^3/uL 5.94 RBC (3.93-5.22) 10^6/uL 3.91 L Hgb (11.2-15.7) g/dL 11.9 Hct (36.0-46.0) % 36.4 MCV (80-95) fL 93 MCH (27.0-33.0) pg 30.4 MCHC (32.0-36.0) % 32.7 RDW (11.7-14.6) % 13.2 Plt Count (130-400) 10^3/uL 222 MPV (8.0-11.0) fL 9.8 Immature Gran % 0.2 Neutrophils % 81.4 Lymphocytes % 9.8 Monocytes % 8.1 Eosinophils % 0.0 Basophils % 0.5 Nucleated RBC % (0.0-0.3) % 0.0 Absolute Neutrophils (1.2-6.7) 10^3/uL 4.84 Absolute Lymphocytes (1.2-3.4) 10^3/uL 0.58 L Absolute Monocytes (0.1-0.8) 10^3/uL 0.48 Absolute Eosinophils (0.0-0.7) 10^3/uL 0.00 Absolute Basophils (0.0-0.2) 10^3/uL 0.03 Sodium (136-145) mmol/L 131 L Potassium (3.5-5.1) mmol/L 3.1 L Chloride (98-107) mmol/L 100 Carbon Dioxide (21.0-32.0) mmol/L 26.3 Anion Gap (3-11) mmol/L 4.7 BUN (7-18) mg/dL 9 Creatinine (0.55-1.02) mg/dL 0.7 Est GFR (CKD-EPI 2020) (mL/min/1.73m2) 105.30 Glucose (74-106) mg/dL 145 H Calcium (8.5-10.1) mg/dL 8.6 Total Bilirubin (0.2-1.0) mg/dL 0.3 AST (15-37) U/L 15 ALT (14-59) U/L 17 Alkaline Phosphatase (46-116) U/L 52 Total Protein (6.4-8.2) g/dL 7.6 Albumin (3.4-5.0) g/dL 4.1 Urine Color (Yellow) Urine Clarity (Clear) Urine pH (5-8) Ur Specific [place] (1.005-1.025) Urine Protein (Negative) mg/dL Urine Ketones (Negative) mg/dL Urine Blood (Negative) Urine Nitrite (Negative) Urine Bilirubin (Negative) Urine Urobilinogen (Up TO 0.2) EU/dL Ur Leukocyte Esterase (Negative) Urine Glucose (Negative) mg/dL COVID-19 Source Nasopharynx SARS-CoV-2 (PCR) (Negative) Positive A Influenza Type A (PCR) (Negative) Negative Influenza Type B (PCR) (Negative) Negative RSV (PCR) (Negative) Negative Range/Units 05/15/22 10:45 WBC (4.4-10.8) 10^3/uL RBC (3.93-5.22) 10^6/uL Hgb (11.2-15.7) g/dL Hct (36.0-46.0) % MCV (80-95) fL MCH (27.0-33.0) pg MCHC (32.0-36.0) % RDW (11.7-14.6) % Plt Count (130-400) 10^3/uL MPV (8.0-11.0) fL Immature Gran % Neutrophils % Lymphocytes % Monocytes % Eosinophils % Basophils % Nucleated RBC % (0.0-0.3) % Absolute Neutrophils (1.2-6.7) 10^3/uL Absolute Lymphocytes (1.2-3.4) 10^3/uL Absolute Monocytes (0.1-0.8) 10^3/uL Absolute Eosinophils (0.0-0.7) 10^3/uL Absolute Basophils (0.0-0.2) 10^3/uL Sodium (136-145) mmol/L Potassium (3.5-5.1) mmol/L Chloride (98-107) mmol/L Carbon Dioxide (21.0-32.0) mmol/L Anion Gap (3-11) mmol/L BUN (7-18) mg/dL Creatinine (0.55-1.02) mg/dL Est GFR (CKD-EPI 2020) (mL/min/1.73m2) Glucose (74-106) mg/dL Calcium (8.5-10.1) mg/dL Total Bilirubin (0.2-1.0) mg/dL AST (15-37) U/L ALT (14-59) U/L Alkaline Phosphatase (46-116) U/L Total Protein (6.4-8.2) g/dL Albumin (3.4-5.0) g/dL Urine Color (Yellow) Yellow Urine Clarity (Clear) Clear Urine pH (5-8) 7.0 Ur Specific [place] (1.005-1.025) 1.025 Urine Protein (Negative) mg/dL Negative Urine Ketones (Negative) mg/dL 40 H Urine Blood (Negative) Moderate H Urine Nitrite (Negative) Negative Urine Bilirubin (Negative) Negative Urine Urobilinogen (Up TO 0.2) EU/dL 0.2 Ur Leukocyte Esterase (Negative) Negative Urine Glucose (Negative) mg/dL Negative COVID-19 Source SARS-CoV-2 (PCR) (Negative) Influenza Type A (PCR) (Negative) Influenza Type B (PCR) (Negative) RSV (PCR) (Negative) HPI General Mode of arrival: ambulatory . Date/Time Provider Initiated Documentation: 05/15/22 09:05 . Limitations to Documentation: no limitations . Information obtained by: patient . HPI Narrative: This is a 51-year-old female, reports past medical history of migraines typically associated with her menstrual cycle, presenting to the ER today reporting headache that began yesterday around 10 AM, gradually in nature, associated throughout the day with nausea, vomiting, photophobia, myalgias, mild dry cough. Patient states that she is perimenopausal, has not had a menstrual cycle in roughly 5 months and therefore has not had a migraine in that time. She states that photophobia and nausea and vomiting are typical with her migraines however her migraines are typically global and worse on the right side, this is global but worse in the front. She denies recent trauma. Patient has not taken any medication for her symptoms. She reports that the symptoms began gradually yesterday, seem to worsen through the day but around 2 AM earlier this morning seem to get significantly worse, describes pain now as severe. 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 She denies any fever, visual changes, neck pain, chest pain, shortness of breath, numbness, tingling, weakness, change in bowel or bladder function. While she reports that this feels slightly different than her typical migraine, she does state that she had a similar headache nearly 5 years ago that eventually caused her to be evaluated in the ER, IV meds helped greatly. Related Data Home Medications Medication Instructions Recorded Confirmed sumatriptan succinate 50 mg tablet 50 mg PO PRN PRN 03/15/16 05/15/22 (Imitrex) ondansetron 4 mg disintegrating 4 mg PO TID PRN 3 days #9 tabs 05/15/22 tablet Previous Rx's Medication Instructions Recorded ondansetron 4 mg disintegrating 4 mg PO TID PRN 3 days #9 tabs 05/15/22 tablet Allergies Allergy/AdvReac Type Severity Reaction Status Date / Time No Known Allergies Allergy Unverified 05/15/22 09:09 General Stated Complaint: Headache STEPAN: 3 Review of Systems Constitutional Constitutional: Denies fever(s), Reports headache(s) and Denies weakness Eyes Eyes: Denies change in vision and Reports photophobia ENT Ears, Nose, Mouth, and Throat: Reports headache(s) and Denies neck pain Cardiovascular Cardiovascular: Denies chest pain and Denies dyspnea Respiratory Respiratory: Denies cough and Denies dyspnea Gastrointestinal Gastrointestinal: Denies abdominal pain, Reports nausea and Reports vomiting Genitourinary Genitourinary: Denies dysuria Musculoskeletal Musculoskeletal: Reports myalgias, Denies neck pain, Denies numbness and Denies tingling Integumentary/Breasts Skin/Breast: Denies rash Neurologic Neurologic: Reports headache(s), Denies numbness, Denies tingling and Denies weakness Hematologic/Lymphatic Hematologic/Lymphatic: Denies easy bleeding and Denies easy bruising PFSH All Active Problems (Updated 05/15/22 @ 11:03 by AIDEN Galarza) COVID (Acute) Hypokalemia (Acute) Cephalgia (Acute) Screening for colon cancer (Acute) Medical History Depressive disorder Heart murmur Irregular menses Migraine Palpitations Senile hyperkeratosis Skin lesion Skin pigmentation disorder Surgical History H/O cardiac radiofrequency ablation Previous section x2 Social History Smoking/Tobacco Use Status: Never Smoking risk assessment performed?: Yes Alcohol Intake: never Drug use: Never Substance use type: does not use Do you feel safe at home: Yes Do you feel safe in your relationship?: Yes Exam Const General: cooperative, healthy appearing and no acute distress Orientation: alert, awake and oriented x3 Other: Patient prefers to keep her eyes closed, appears slightly uncomfortable HENMT Head: normal to inspection, normocephalic and atraumatic General nose exam: external nose normal Face and sinus: normal facial exam Mouth: moist mucous membranes Throat: posterior oropharynx normal Eyes General: appearance normal, both eyes and all related structures Alignment and Position: alignment normal Periorbital: periorbital findings normal Eyelids: eyelids normal Conjunctivae: conjunctivae normal Sclera: sclerae normal Cornea: corneas normal Pupils: PERRL EOM: EOM intact bilaterally Direct ophthalmoscopy: normal light reflex Neck Neck: normal visual inspection, full ROM, no meningeal signs, trachea midline, supple and nontender Resp Effort & Inspection: normal respiratory effort and able to speak in complete sentences Auscultation: clear to auscultation bilaterally Cardio Rate: regular rate Rhythm: regular rhythm GI Palpation: soft and nontender Back/Spine/Pelvis Back: No back tenderness Skin General skin exam: no rashes or lesions noted Neuro General: patient alert, patient awake, patient oriented x3, moves all extremities and no focal motor deficits Cranial Nerves: CN's II-XI intact bilaterally Cognition: normal cognition Speech: speech normal Gait: normal gait Motor: muscle tone normal throughout Sensory Exam: no sensory deficits noted Extrem General: normal to inspection, full ROM and capillary refill normal Psych Appearance: grossly normal Mental Status: mental status grossly normal Course Vital Signs Vital signs: Vital Signs Temperature 37.1 C 05/15/22 09:05 Pulse 82 05/15/22 09:05 Respiratory Rate 18 05/15/22 09:05 Blood Pressure 121/63 05/15/22 09:05 Pulse Oximetry 100 05/15/22 09:05 Temperature 37.1 C 05/15/22 09:05 Temperature Source Skin 05/15/22 09:05 Pulse 82 05/15/22 09:05 Respiratory Rate 18 05/15/22 09:05 Respiratory Effort 05/15/22 09:08 Blood Pressure 121/63 05/15/22 09:05 Blood Pressure Position Supine 05/15/22 09:05 Pulse Oximetry 100 05/15/22 09:05 Oxygen Delivery Method Room Air 05/15/22 09:05 Oxygen Flow Rate 0 05/15/22 09:05 Pain Level 10 05/15/22 09:12 Lab/Test Results Lab/Test Results: Laboratory Tests Range/Units 05/15/22 05/15/22 09:10 09:10 WBC (4.4-10.8) 10^3/uL 5.94 RBC (3.93-5.22) 10^6/uL 3.91 L Hgb (11.2-15.7) g/dL 11.9 Hct (36.0-46.0) % 36.4 MCV (80-95) fL 93 MCH (27.0-33.0) pg 30.4 MCHC (32.0-36.0) % 32.7 RDW (11.7-14.6) % 13.2 Plt Count (130-400) 10^3/uL 222 MPV (8.0-11.0) fL 9.8 Immature Gran % 0.2 Neutrophils % 81.4 Lymphocytes % 9.8 Monocytes % 8.1 Eosinophils % 0.0 Basophils % 0.5 Nucleated RBC % (0.0-0.3) % 0.0 Absolute Neutrophils (1.2-6.7) 10^3/uL 4.84 Absolute Lymphocytes (1.2-3.4) 10^3/uL 0.58 L Absolute Monocytes (0.1-0.8) 10^3/uL 0.48 Absolute Eosinophils (0.0-0.7) 10^3/uL 0.00 Absolute Basophils (0.0-0.2) 10^3/uL 0.03 Sodium (136-145) mmol/L 131 L Potassium (3.5-5.1) mmol/L 3.1 L Chloride (98-107) mmol/L 100 Carbon Dioxide (21.0-32.0) mmol/L 26.3 Anion Gap (3-11) mmol/L 4.7 BUN (7-18) mg/dL 9 Creatinine (0.55-1.02) mg/dL 0.7 Est GFR (CKD-EPI 2020) (mL/min/1.73m2) 105.30 Glucose (74-106) mg/dL 145 H Calcium (8.5-10.1) mg/dL 8.6 Total Bilirubin (0.2-1.0) mg/dL 0.3 AST (15-37) U/L 15 ALT (14-59) U/L 17 Alkaline Phosphatase (46-116) U/L 52 Total Protein (6.4-8.2) g/dL 7.6 Albumin (3.4-5.0) g/dL 4.1
[2022-05-15] MEDS: diphenhydrAMINE 50 MG/ML VIAL IVP (09:43)
[2022-05-15] MEDS: Ketorolac 30 MG/ML VIAL IVP (09:44)
[2022-05-15] MEDS: Prochlorperazine 10 MG/2 ML VIAL IVP (09:44)
[2022-05-15] MEDS: Normal Saline 1,000 ML 1000 ML IV (09:45)
[2022-05-15 09:59] LABS: Influenza A PCR Negative (Negative); Influenza B PCR Negative (Negative); RSV PCR Negative (Negative)
[2022-05-15 10:00] LABS: Source Nasopharynx
[2022-05-15 10:02] LABS: COVID-19 PCR Positive (Negative)
[2022-05-15] MEDS: Potassium Chloride 20 MEQ TABCR 40 MEQ PO (10:19)
[2022-05-15] MEDS: Acetaminophen 500 MG TAB 1000 MG PO (10:19)
[2022-05-15 10:56] LABS: Bilirubin Negative (Negative); Blood Moderate (Negative); Clarity Clear (Clear); Glucose Negative (Negative); Ketones 40 mg/dL (Negative); Leukocyte Esterase Negative (Negative); Nitrite Negative (Negative); Specific Gravity 1.025 (1.005-1.025); Urobilinogen 0.2 EU/dL (Up TO 0.2)
[2022-05-15 11:10] LABS: Epithelial Cells Many HPF (Negative); RBC >50 HPF (0-2)
[2022-05-15 11:11] LABS: Bacteria Rare HPF (Negative); C & S Indicated? No/Sq. Contamination; Casts Negative LPF (Negative); Crystals Negative HPF (Negative); Mucus Trace (Negative)
--- NOTE | 2022-05-16 18:02 | NUR.NOTE ---
work note faxed to fax#[phone], patient may return to work on 05/19/22 per Jeison Pedraza. Nursing Note:
== END 2022-05-15 12:03 | disposition home or self-care (01) ==
PROVIDERS: Emergency Provider Physician Assistant; PCP Nurse Practitioner Family
DX: U07.1 COVID-19 (principal); E87.6 Hypokalemia; R51.9 Headache, unspecified
CPT/HCPCS: 36415; 80053; 81025; 87637; 96361; 96374; 96375; 99284; 81003; 81015; 85025; J0780; J1200; J1885

== ENCOUNTER 2022-12-08 11:08 | Outpatient (REF) | payer BC, SELFPAY ==
[2022-12-08 14:37] LABS: HCT 39.9 % (36.0-46.0); HGB 13.2 g/dL (11.2-15.7); MCH 30.3 pg (27.0-33.0); MCHC 33.1 % (32.0-36.0); MCV 92 fL (80-95); MPV 10.2 fL (8.0-11.0); Platelet Count 271 10^3/uL (130-400); RBC 4.35 10^6/uL (3.93-5.22); RDW 13.1 % (11.7-14.6); RDW-SD 43.7 fL; WBC 6.27 10^3/uL (4.4-10.8)
[2022-12-08 14:55] LABS: ALT 19 U/L (14-59); AST 17 U/L (15-37); Albumin 4.6 g/dL (3.4-5.0); Alkaline Phosphatase 61 U/L (46-116); Anion Gap 7.6 mmol/L (3-11); BUN 15 mg/dL (7-18); Bilirubin, Total 0.5 mg/dL (0.2-1.0); CO2 28.4 mmol/L (21.0-32.0); CREATININE 0.7 mg/dL (0.55-1.02); Chloride 104 mmol/L (98-107); Estimated GFR 104.65 (mL/min/1.73m2); Glucose 80 mg/dL (74-106); Lipase 31 U/L (16-77); Potassium 3.8 mmol/L (3.5-5.1); Sodium 140 mmol/L (136-145); Total Protein 7.9 g/dL (6.4-8.2)
[2022-12-08 15:01] LABS: Calcium 9.9 mg/dL (8.5-10.1)
== END 2022-12-08 11:09 | disposition home or self-care (01) ==
LOC: NCHCN 11:08
PROVIDERS: PCP Nurse Practitioner Family; Visit Provider Nurse Practitioner Family
DX: R10.11 Right upper quadrant pain (principal); R10.31 Right lower quadrant pain
CPT/HCPCS: 80053; 83690; 85027

== ENCOUNTER → 2022-12-08 15:39 | Outpatient (CLI) | payer BC, SELFPAY ==
--- NOTE | 2022-12-08 | DI.CT_ITS ---
Exam(s) CT ABDOMEN PELVIS W EXAM: CT ABDOMEN PELVIS W CLINICAL HISTORY: RUQ AND RLQ PAIN, R10.31,R10.11 TECHNIQUE: Imaging Protocol: Axial computed tomography images with coronal and sagittal reformatted images were created and reviewed CONTRAST MATERIAL: Intravenous: Omnipaque 350 Contrast volume:100 mL Oral: Yes CT CT ABDOMEN PELVIS W from 01/17/2018 FINDINGS: ABDOMEN: Lung Bases: Normal where visualized. Liver: Normal density. There are 2 tiny hypodensities within the liver. They are too small for furth er characterization. Portal, Superior Mesenteric, and Splenic Veins: Unremarkable. Gallbladder and Biliary Tract: No radiodense calculus or dilation. Pancreas: Normal density, no abnormal calcifications or inflammatory process. Spleen: Normal. Adrenals: No masses seen. Kidneys: Normal size, contour and axis. No radiodense stones or obstructive uropathy. There are 2 sta ble tiny hypodensities in the right kidney. They are too small for further characterization. Abdominal Aorta: Abdominal portion non-dilated. Bowel: There is a large amount of stool in the colon suggesting constipation. There is no evidence o f bowel obstruction or bowel wall thickening. There is no evidence of appendicitis. Peritoneal Cavity: No ascites, collection or mesenteric inflammatory response. No free air. Lymph Nodes: Within normal limits. Bones: Within normal limits for the patient's age. Stable sclerotic focus in the right iliac bone si nce 2018. Soft Tissues: Unremarkable. PELVIS: Bladder: Symmetric distention, no gross wall thickening. Reproductive Organs: There is a 2.8 cm left ovarian cyst. Lymph Nodes: Within normal limits. Bones: Within normal limits for the patient's age. IMPRESSION: 1. No acute abdominal or pelvic process. 2. Constipation. 3. 2.8 cm left ovarian cyst. 4. If there is continued concern for gallbladder disease, abdominal ultrasound may be obtained for fu rther evaluation. If there is concern for appendicitis, a follow-up CT examination may be obtained. RADIATION DOSE DELIVERED: 675.33mGy.cm Total DLP DATA REPOSITORY: All CT scans at this facility are submitted to the National Radiology Data Registry (NRDR) Dose Index Registry (DIR) with the [employer] (ACR). RADIATION OPTIMIZATION: All CT scans at this facility use at least one of these dose optimization te chniques: automated exposure control; mA and/or kV adjustment per patient size (includes targeted exa ms where dose is matched to clinical indication); or iterative reconstruction.
[2022-12-08] MEDS: Barium Sulfate 2% W/V-Berry Smoothie 450 ML BTL PO (13:15)
[2022-12-08] MEDS: Normal Saline - Diluent 50 ML VIAL IJ (15:07)
[2022-12-08] MEDS: Omnipaque 350 MG/ML 100 ML BTL IJ (15:07)
[2022-12-08] MEDS: Normal Saline Flush 10 ML SYR IVP (15:08)
== END ==
PROVIDERS: PCP Nurse Practitioner Family; Visit Provider Nurse Practitioner Family
DX: K59.00 Constipation, unspecified (principal); N83.202 Unspecified ovarian cyst, left side; R10.31 Right lower quadrant pain; R10.11 Right upper quadrant pain
CPT/HCPCS: 74177; J3490

== ENCOUNTER 2023-01-11 16:07 | Outpatient (REF) | payer BC, SELFPAY ==
[2023-01-13 10:31] LABS: CA 125 9 U/mL (<30)
== END 2023-01-11 16:08 | disposition home or self-care (01) ==
LOC: NCHCN 16:07
PROVIDERS: PCP Nurse Practitioner Family; Visit Provider Nurse Practitioner Family
DX: N83.292 Other ovarian cyst, left side; Z12.73 Encounter for screening for malignant neoplasm of ovary
CPT/HCPCS: 86304

== ENCOUNTER → 2023-05-16 02:21 | Outpatient (CLI) | payer BC, SELFPAY ==
--- NOTE | 2023-05-16 | DI.MAMMO_ITS ---
Exam(s) MAMMO SCREENING EXAM: MAMMO SCREENING CLINICAL HISTORY: SCREENING, Z12.39 TECHNIQUE: Bilateral full field digital CC and MLO mammographic images were obtained with 3D tomosyn thesis and utilizing computer aided detection (CAD). COMPARISON: This is a baseline examination. FINDINGS: Masses/Architectural Distortion: None seen. Microcalcifications: No suspicious pleomorphic-type are seen. Skin Thickening/Nipple Retraction: None. IMPRESSION: 1. No significant interval change with no specific features of malignancy noted. 2. Unless there is more urgent need, screening mammography is recommended, as per [employer] guidelines. BI-RADS Category 1 - Negative Breast Density - Category C - Heterogeneously dense Breast density category C or D implies that the patient has dense breast tissue. Dense breast tissue is very common and is not abnormal but dense breast tissue can make it harder to find cancer on a ma mmogram. Also, dense breast tissue may increase their breast cancer risk. This information about the result of the mammogram report was provided to the patient to raise their awareness. Use this report when you speak with the patient about their risks for breast cancer, which includes their family hist ory. At that time, you may recommend for more screening tests (Ultrasound or MRI) as they might be us eful based on their risk. A negative radiographic report should not delay biopsy if a dominant or clinically suspicious mass is present. Up to ten percent of cancers are not identified on mammography. A negative report may reinforce clinical impression. Adenosis and dense breasts may obscure an underlying neoplasm. False positive reports average 6 to 10%. Patient will receive a letter notifying them of these results.
== END ==
PROVIDERS: PCP Nurse Practitioner Family; Visit Provider Nurse Practitioner Family
DX: Z12.31 Encounter for screening mammogram for malignant neoplasm of breast (principal)
CPT/HCPCS: 77063; 77067

== ENCOUNTER 2023-07-04 09:49 | Day surgery (SDC) | payer BC, SELFPAY ==
--- NOTE | 2023-07-03 18:09 | W.PREOPHP ---
History of Present Illness History of Present Illness Chief Complaint: screening colonoscopy PFSH All Active Problems Depression with anxiety (Acute) COVID (Acute) Screening for colon cancer (Acute) Medical History Other ovarian cyst, left side Depressive disorder Senile hyperkeratosis Skin pigmentation disorder Heart murmur Palpitations Skin lesion Irregular menses Migraine Surgical History H/O cardiac radiofrequency ablation Previous section x2 Social History Smoking/Tobacco Use Status: Never Smoking risk assessment performed?: Yes Alcohol Intake: never Drug use: Never Substance use type: does not use Do you feel safe at home: Yes Do you feel safe in your relationship?: Yes Meds Allergies and Home Medications Allergies Allergy/AdvReac Type Severity Reaction Status Date / Time No Known Allergies Allergy Unverified 05/19/23 13:00 Home Medications Medication Instructions Recorded Confirmed Type sumatriptan succinate 50 mg tablet 50 mg PO PRN PRN 03/15/16 05/19/23 History (Imitrex) bisacodyl 5 mg tablet,delayed 5 mg PO ONCE Colonoscopy Bowel 05/19/23 05/19/23 Rx release (Dulcolax (bisacodyl)) Prep #4 tabs polyethylene glycol 3350 17 238 g PO ONCE Colonoscopy Bowel 05/19/23 05/19/23 Rx gram/dose oral powder Prep #238 grams
--- NOTE | 2023-07-03 18:10 | W.PM.DSUDISC ---
Date of service: 07/04/23 Discharge Plan Disposition Patient Disposition: Home Condition: Good Discharge Details Reason For Visit: screening colonoscopy Attending Provider: Kendell Mcarthur Primary Care Provider: Monae Stringer Home Meds and New Rx's Prescriptions: Continued sumatriptan succinate [Imitrex] 50 MG tablet 50 mg PO PRN PRN Discontinued bisacodyl [Dulcolax (bisacodyl)] 5 mg tablet,delayed release (DR/EC) 5 mg PO ONCE Qty: 4 0RF Rx Instructions: Colonoscopy Bowel Prep- Per Instructions polyethylene glycol 3350 17 gram/dose powder 238 g PO ONCE Qty: 238 0RF Rx Instructions: Colonoscopy Bowel Prep- Per Instructions Discharge Instructions Additional Instructions: 1. If tolerated, consume a soft, low fiber diet for 1-2 days. [address] not drive, drink alcohol, operate machinery, make critical decisions, or do activities that require coordination or balance for 24 hours. 3. Because air was put into your colon during the procedure, expelling air from your rectum (passing gas or farting) is normal. 4. You may not have a bowel movement for 1-3 days because of the colonoscopy prep. This is normal. 5. Go directly to the emergency room if you notice any of the following: Develop chills (warm to touch), or if you have a thermometer and your temperature is above 101 Difficulty breathing or difficultly swallowing Persistent vomiting Severe abdominal pain, other than gas cramps Severe chest pain Black, tarry stools Any bleeding ? exceeding one tablespoon 6. Call your physician if the site where your intravenous was started becomes red, swollen, painful, and warm to touch. 7. Your physician has reviewed your pre-procedure medications. Please continue to take those medications as previously ordered. You will be given specific information/education regarding any changes to your medications before leaving. Activity:: Activity as Tolerated Diet:: As Tolerated DS: Diagnosis Discharge Diagnosis (1) Screening for colon cancer: Status: Acute
--- NOTE | 2023-07-03 18:11 | W.COLOREPORT ---
Date of service: 07/04/23 Colonoscopy Report Date of procedure: 07/04/23 Pre-op diagnosis general: screening colonoscopy Procedure: Colonoscopy Surgeon: Kendell Mcarthur Anesthesia Type: General:No Airway Complications: None Disposition: same day Indications: Swetha is a 52 year old woman who needs her first screening colonoscopy Prep: Miralax/Dulcolax
--- NOTE | 2023-07-04 10:32 | NUR.NOTE ---
07/04/23 at 09:50 Patient arrived to [facility] Preop area. Patient verbalizes she does not have a responsible adult escort to drive her home or a responsible adult to monitor her after her procedure until anesthesia has worn off. When asked by the RN is she has any alternative ride or adult to monitor her after procedure, the patient reports her ex is out of state as are her two adult children. She reports no other family or friends able to assist her today. This RN educates the patient on [facility] and [facility] preop/postop policies regarding that patient must have a responsible adult escort present and available for 24 hours after she receives anesthesia for her procedure today. Patient verbalizes understanding of all. [facility] school coordinator, Anesthesia Team and Dr. Mcarthur made aware of patient lack of responsible adult before and after procedure. Sheila Cruz RN Nursing Note:
--- NOTE | 2023-07-04 10:48 | NUR.NOTE ---
07/04/23 at 10:25am Nursing Note: Dr. Mcarthur reviews procedure and discharge with responsible adult escort present in the preop area. Patient again verbalized understanding of the policy but reports she does not have anyone available today. Patient elects to cancel today procedure and re-schedule with Dr. Mcarthur office once she has an available adult escort. Patient procedure cancelled and to be rescheduled by patient and Dr. Mcarthur office staff. Mayra Cruz RN
== END 2023-07-04 09:50 | disposition home or self-care (01) ==
LOC: SUR 09:50
PROVIDERS: PCP Nurse Practitioner Family; Visit Provider Surgery
DX: Z53.09 Procedure and treatment not carried out because of other contraindication (principal)

== ENCOUNTER 2024-01-24 16:01 | Outpatient (REF) | payer BC, SELFPAY ==
[2024-01-24 21:13] LABS: HCT 39.1 % (36.0-46.0); HGB 12.7 g/dL (11.2-15.7); MCH 30.6 pg (27.0-33.0); MCHC 32.5 % (32.0-36.0); MCV 94 fL (80-95); MPV 10.6 fL (8.0-11.0); Platelet Count 271 10^3/uL (130-400); RBC 4.15 10^6/uL (3.93-5.22); RDW 12.8 % (11.7-14.6); RDW-SD 44.4 fL
[2024-01-24 21:25] LABS: ALT 24 U/L (14-59); AST 20 U/L (15-37); Albumin 4.5 g/dL (3.4-5.0); Alkaline Phosphatase 58 U/L (46-116); Anion Gap 11.4 mmol/L (3-11); BUN 11 mg/dL (7-18); Bilirubin, Total 0.66 mg/dL (0.2-1.0); CO2 27.6 mmol/L (21.0-32.0); CREATININE 0.8 mg/dL (0.55-1.02); Calcium 9.7 mg/dL (8.5-10.1); Calculated LDL 120 mg/dL (<100); Chloride 105 mmol/L (98-107); Cholesterol 204 mg/dL (<200); Glucose 83 mg/dL (74-106); HDL Cholesterol 72 mg/dL (40-60); Potassium 3.8 mmol/L (3.5-5.1); Sodium 144 mmol/L (136-145); Total Protein 7.7 g/dL (6.4-8.2); Triglyceride 62 mg/dL (<150)
== END 2024-01-24 16:02 | disposition home or self-care (01) ==
LOC: NCHCN 16:01
PROVIDERS: PCP Nurse Practitioner Family; Visit Provider Nurse Practitioner Family
DX: Z00.00 Encounter for general adult medical examination without abnormal findings (principal)
CPT/HCPCS: 80053; 80061; 85027

== ENCOUNTER 2024-04-03 09:21 | Emergency (ER) | payer BC, SELFPAY ==
[2024-04-03 09:23] VITALS: BP 123/70; PULSE 56; RESP 16; TEMP 36.2; O2SAT 100
--- NOTE | 2024-04-03 09:30 | DI.RAD_ITS ---
Exam(s) XR FOREARM RT EXAM: XR FOREARM RT CLINICAL HISTORY: pain right mid forearm, hit on door. TECHNIQUE: 2D digital imaging was performed of the left forearm. Two views were obtained. AP and l ateral views were obtained. COMPARISON: No exams were available for comparison FINDINGS: BONES: No acute fracture is present. No bony destructive lesion is seen. Visualized portion of elbow and wrist joints are unremarkable. SOFT TISSUE: Normal. IMPRESSION: Unremarkable radiographs of the left forearm. DATA REPOSITORY: RADIATION DOSE DELIVERED:
[2024-04-03] MEDS: Ibuprofen 600 MG TAB PO (09:35)
--- NOTE | 2024-04-03 10:22 | ED.GENADUL_ITS ---
Discharge Plan Disposition Patient Disposition: Home Discharge Details Clinical Impression: Contusion of forearm, right Primary Care Provider: Monae Stringer ED Provider: Ellen Scales Home Meds and New Rx's Prescriptions: No Action No Known Home Meds Discharge Instructions Instructions: Taking care of bruises, Acute Pain, Adult Additional Instructions: You may apply cool compress to decrease swelling and pain, do not place any cold packs directly on the skin You may take ibuprofen 600 mg every 8 hours with food and Tylenol 650 mg every 6 hours as needed There is a large hematoma which is likely causing the majority of your pain, and may take a week or so for this to resorb Please be reevaluated in 1 week should you develop persistent or worsening symptoms should any new concerns arise Your x-ray today does not show evidence of a fracture Stand Alone Forms: Work Release Referrals: Monae Stringer [Primary Care Provider] - 5 days HPI General Date/Time Provider Initiated Documentation: 04/03/24 09:27 . HPI Narrative: This 53-year-old female presents with right forearm pain after tripping and falling over her dog. She hit her forearm on the corner of a door. She denies any additional injuries. Denies any history of coagulopathy or headache Related Data Home Medications ?Medication ?Instructions ?Recorded ?Confirmed Unknown [No Known Home Meds] 04/03/24 04/03/24 Allergies Allergy/AdvReac Type Severity Reaction Status Date / Time No Known Allergies Allergy Verified 04/03/24 09:27 General Stated Complaint: Orthopedic STEPAN: 4 Exam Narrative Exam Narrative: Right forearm with ecchymosis mid forearm, neurovascularly intact, no tenderness to elbow, shoulder, right wrist Course Vital Signs Vital signs: Vital Signs Temperature 36.2 C L 04/03/24 09:23 Pulse 56 L 04/03/24 09:23 Respiratory Rate 16 04/03/24 09:23 Blood Pressure 123/70 04/03/24 09:23 Pulse Oximetry 100 04/03/24 09:23 Temperature 36.2 C L 04/03/24 09:23 Temperature Source Tympanic 04/03/24 09:23 Pulse 56 L 04/03/24 09:23 Respiratory Rate 16 04/03/24 09:23 Blood Pressure 123/70 04/03/24 09:23 Blood Pressure Position Sitting 04/03/24 09:23 Pulse Oximetry 100 04/03/24 09:23 Oxygen Delivery Method Nasal Cannula 04/03/24 09:23 Pain Level 5 04/03/24 09:35 Medical Decision Making 53-year-old female presenting with right forearm pain after a fall. X-ray does not show evidence of acute abnormality per radiology interpretation my review. Motrin Tylenol encouraged, work note supplied, return precautions reviewed and patient expressed understanding Quality:SDOH Health Related Social Needs: No Data to Display PFSH All Active Problems (Updated 04/03/24 @ 10:08 by AIDEN Cobos) Contusion of forearm, right (Acute) Depression with anxiety (Acute) COVID (Acute) Screening for colon cancer (Acute) Medical History Other ovarian cyst, left side Depressive disorder Senile hyperkeratosis Skin pigmentation disorder Heart murmur Palpitations Skin lesion Irregular menses Migraine Surgical History H/O cardiac radiofrequency ablation Previous section x2 Social History Smoking/Tobacco Use Status: Never Smoking risk assessment performed?: Yes Alcohol Intake: never Drug use: Never Substance use type: does not use Do you feel safe at home: Yes Do you feel safe in your relationship?: Yes
[2024-04-03 10:28] VITALS: BP 99/54; PULSE 64; RESP 18; TEMP 36.7; O2SAT 100
== END 2024-04-03 10:36 | disposition home or self-care (01) ==
PROVIDERS: Emergency Provider Physician Assistant; PCP Nurse Practitioner Family
DX: S50.11XA Contusion of right forearm, initial encounter (principal); W01.0XXA Fall on same level from slipping, tripping and stumbling without subsequent striking against object, initial encounter; Y93.89 Activity, other specified; Y92.89 Other specified places as the place of occurrence of the external cause
CPT/HCPCS: 99283; 73090

== ENCOUNTER 2025-03-04 08:05 | Emergency (ER) | payer BC, SELFPAY ==
[2025-03-04] VITALS (10 sets, daily range): BP systolic 103–114; BP diastolic 63–91; PULSE 51–60; RESP 16–18; TEMP 36.5; O2SAT 100
--- NOTE | 2025-03-04 08:20 | ED.GENADUL_ITS ---
Discharge Plan Disposition Patient Disposition: Home Discharge Details Clinical Impression: Right sided abdominal pain Primary Care Provider: Monae Stringer ED Provider: Darrian Gomez Home Meds and New Rx's Prescriptions: Continued hydroxyzine HCl 25 mg tablet 25 mg PO Q6H PRN Patient Comments: TAKE ONE TO TWO TABLETS BY MOUTH EVERY 6 HOURS NEEDED FOR ANXIETY Discharge Instructions Additional Instructions: You are seen in the emergency department for your abdominal pain. Your CAT scan showed no sign of any kidney stone. Your ultrasound showed no sign of any gallbladder infection. As we discussed if you develop fevers or rash please return to the emergency department. Otherwise please touch base with your primary care provider as you are due for a colon cancer screening with a colonoscopy. Stand Alone Forms: Portal Information, Work Release HPI General Date/Time Provider Initiated Documentation: 03/04/25 08:15 . HPI Narrative: MDM This is a quite well-appearing normothermic and not tachycardic 54-year-old female with right sided abdominal pain concerning for ureterolithiasis for which patient will undergo CT scan given mild ipsilateral right-sided hydronephrosis. No dysuria nor frequency to suggest UTI. No obvious cholelithiasis to suggest increased risk for acute cholecystitis. No pain out of proportion to suggest necrotizing soft tissue infection. I considered PE however the patient denies chest pain shortness of breath and she lacks risk factors for PE. She is not tachycardic nor hypoxic so I did not send a D-dimer as I felt that the risks of false positives outweighed the benefits. No rash to abdomen to suggest zoster. No right lower quadrant tenderness to suggest appendicitis. No left lower quadrant tenderness to suggest diverticulitis. No chest pain to suggest ACS however given sex we will obtain ECG and troponin. She has not been coughing to suggest pneumonia. Not recently to suggest splenic arterial aneurysm. No significant vascular risk factors so my suspicion is low for ruptured AAA. No history of inflammatory bowel disease to suggest flare of Crohn's or ulcerative colitis. 8:57 AM Reassuring LFTs and no CLYDE. No acute electrolyte abnormalities. Reassuring normal lipase. CBC showing mild leukopenia. No anemia. No thrombocytopenia. 9:50 AM Undetectable initial troponin. She did have some low voltage on her ECG however in the absence of shortness of breath and chest pain I was not suspicious for a pericardial effusion so I did not feel that the patient required a bedside echocardiogram. 10:23 AM Formal radiology right upper quadrant ultrasound showing a normal sonographic gallbladder with no signs of cholelithiasis no acute cholecystitis. Patient and I met. Your CT scan was also reassuring. She has not yet had a colonoscopy. She does describe intermittent history of diarrhea and constipation. I advised her to follow-up with her primary care provider. We also discussed possibility of an outpatient HIDA scan. She has no B symptoms to suggest increased risk for malignancy but given her age I advised her that a colonoscopy was a recommended screening tests. We also discussed that she should return if she developed any rash on her abdomen which could represent zoster. We also discussed returning for fevers. She understood her return indications and was discharged with an empiric trial of expectant outpatient management. Diagnostic interpretations performed by me: Per my independent interpretation EKG shows: ECG showing sinus bradycardia rate of 51. Low voltage. No acute injury pattern. No prior for comparison. HPI This is a patient with a history of gallstones and kidney stones presenting with right-sided abdominal discomfort. The patient has been experiencing intermittent sharp pains in the right abdomen for the past 6 days, which have now become constant. The pain is described as radiating from the right side of the abdomen downwards. She reports no associated respiratory distress, chest pain, cough, or fever. She has no history of thromboembolic events such as deep vein thrombosis or pulmonary embolism. She has no history of abdominal surgeries or other medical conditions. The patient does not take any daily medications and reports no alcohol consumption. She also reports no nausea or vomiting but mentions diarrhea and irregular bowel movements over the last 2 weeks. She initially suspected gallstones as the cause of her current symptoms but notes that the pain is different from her previous gallstone episodes, as it is more anterior rather than posterior. She maintains a healthy diet and avoids fatty foods. She reports no dysuria. Her last episode of kidney stones was several years ago, and she has never required any procedures for them. She has not sought any pharmacological intervention for her current symptoms. Exam General: Well-appearing in no acute distress speaking in complete sentences. Head: Normocephalic, atraumatic. Eye: Extraocular eye movements intact. No conjunctival injection. No scleral icterus. Ear, nose, mouth, throat: Grossly normal inspection. Normal voice, handling secretions normally. Neck: Trachea midline. Cardiovascular: Well-perfused distal extremities. Regular rate rhythm. Respiratory: Nonlabored respiration.Clear lungs bilaterally Gastrointestinal: Nondistended abdomen. Soft. Minimal right upper quadrant tenderness. No rebound. No guarding. No palpable masses. No rash to abdomen. Musculoskeletal: No edema. Moving all 4 extremities spontaneously. Skin: Normal for age and race, grossly normal temperature and turgor. No acute rash. Neurologic: Alert and appropriate, no apparent acute deficits. Psychiatric: Mood and manner are appropriate. Grooming and personal hygiene are appropriate. Related Data Home Medications Medication Instructions Recorded Confirmed hydroxyzine HCl 25 mg tablet 25 mg PO Q6H PRN 03/04/25 03/04/25 Allergies Allergy/AdvReac Type Severity Reaction Status Date / Time No Known Allergies Allergy Verified 03/04/25 08:10 General Stated Complaint: Abd Prob STEPAN: 3 Course Vital Signs Vital signs: Vital Signs Temperature 36.5 C 03/04/25 08:08 Pulse 60 03/04/25 08:08 Respiratory Rate 18 03/04/25 08:08 Blood Pressure 103/91 H 03/04/25 08:08 Pulse Oximetry 100 03/04/25 08:08 Temperature 36.5 C 03/04/25 08:08 Temperature Source Tympanic 03/04/25 08:08 Pulse 60 03/04/25 08:08 Respiratory Rate 18 03/04/25 08:08 Blood Pressure 103/91 H 03/04/25 08:08 Blood Pressure Position Sitting 03/04/25 08:08 Pulse Oximetry 100 03/04/25 08:08 Oxygen Delivery Method Room Air 03/04/25 08:08 Oxygen Flow Rate 0 03/04/25 08:08 Pain Level 4 03/04/25 08:08 PFSH All Active Problems (Updated 03/04/25 @ 10:25 by Darrian Gomez MD) Right sided abdominal pain (Acute) Depression with anxiety (Acute) COVID (Acute) Screening for colon cancer (Acute) Medical History Other ovarian cyst, left side Depressive disorder Senile hyperkeratosis Skin pigmentation disorder Heart murmur Palpitations Skin lesion Irregular menses Migraine Surgical History H/O cardiac radiofrequency ablation Previous section x2 Social History Smoking/Tobacco Use Status: Never Smoking risk assessment performed?: Yes Alcohol Intake: never Drug use: Never Substance use type: does not use Do you feel safe at home: Yes Do you feel safe in your relationship?: Yes POCUS Exam (ED) Limited Gallbladder Exam DATE OF EXAM: 03/04/25 TIME OF EXAM: 08:42 REASON FOR VISIT: Flank pain VISUALIZED STRUCTURES: Gallbladder and Liver PERTINENT FINDINGS/IMPRESSION: No gallstones, No Pericholecystic fluid and No thickening of the gallbladder wall INCIDENTAL FINDINGS: No cholelithiasis. No gallbladder wall thickening. No pericholecystic fluid. No sonographic Stoll sign. Exam complete Limited Retroperitoneal(Renal)Exam DATE OF EXAM: 03/04/25 TIME OF EXAM: 08:41 PROVIDER THAT PERFORMED THE STUDY: Darrian Gomez IS THIS A REPEAT EXAM DURING THIS ENCOUNTER: No REASON FOR EXAM: Flank pain/right side VISUALIZED STRUCTURES: Right kidney and Other (Bladder) structures: Right kidney PERTINENT FINDINGS/IMPRESSION: Hydronephrosis present right side DIFFERENTIAL DIAGNOSES: Mild left-sided hydronephrosis Exam complete
[2025-03-04 08:23] LABS: Abs Immature Grans 0.01 10^3/uL (0.0-0.06); HCT 39.0 % (36.0-46.0); HGB 12.9 g/dL (11.2-15.7); Immature Grans % 0.3 %; MCH 30.1 pg (27.0-33.0); MCHC 33.1 % (32.0-36.0); MCV 91 fL (80-95); MPV 9.6 fL (8.0-11.0); Platelet Count 256 10^3/uL (130-400); RBC 4.29 10^6/uL (3.93-5.22); RDW 12.9 % (11.7-14.6); RDW-SD 42.5 fL; WBC 3.45 10^3/uL (4.4-10.8)
--- NOTE | 2025-03-04 08:30 | RT.EKG_ITS ---
APPROVED REPORT Exam: Resting ECG Reason for Exam: Right upper quadrant pain Patient Location: E HR:51 bpm ECG Measurements Heart Rate 51 AXIS SD 172 P 61 QRSd 96 QRS 0 QT 418 T 13 QTc 386 Conclusion Sinus bradycardia...rate< 60 Low voltage, precordial leads...precordial leads <1.0mV No Occlusion CA
[2025-03-04 08:37] LABS: Lipase 29 U/L (<53)
[2025-03-04 08:38] LABS: ALT 14 U/L (10-49); AST 20 U/L (<34); Albumin 4.8 g/dL (3.4-5.0); Alkaline Phosphatase 48 U/L (46-116); Anion Gap 8.7 mmol/L (3-11); BUN 10 mg/dL (9-23); Bilirubin, Total 0.80 mg/dL (0.2-1.2); CO2 27.3 mmol/L (20.0-31.0); Calcium 9.6 mg/dL (8.3-10.6); Chloride 106 mmol/L (98-107); Glucose 84 mg/dL (74-106); Potassium 3.7 mmol/L (3.5-5.1); Sodium 142 mmol/L (136-145); Total Protein 7.7 g/dL (5.7-8.2)
--- NOTE | 2025-03-04 09:06 | DI.CT_ITS ---
Exam(s) CT RENAL COLIC WO EXAM: CT RENAL COLIC WO CLINICAL HISTORY: Right-sided abdominal pain. TECHNIQUE: Imaging Protocol: Axial computed tomography images with coronal and sagittal reformatted images were created and reviewed. CONTRAST MATERIAL: Noncontrast COMPARISON: CT CT ABDOMEN PELVIS W from 12/08/2022 FINDINGS: ABDOMEN: Lung Bases: Normal where visualized. Liver: Normal attenuation. No measurable mass. Gallbladder and biliary tract: No radiodense calculus or dilation. Pancreas: Normal density, no calcifications or inflammatory process. Spleen: Normal. Kidneys: Normal size, contour and axis. No radiodense stones or obstructive uropathy. No masses seen. Adrenal glands: No masses seen. Abdominal Aorta: Abdominal portion non-dilated. Soft tissues: Unremarkable. PELVIS: Bladder: Symmetric distention, no gross wall thickening. No evidence of stones.No visible mass. Bowel: No obstruction or bowel wall thickening. Moderate to increase coli of stool. The appendix appears normal. Reproductive: Unremarkable. Peritoneal cavity: No ascites, collection or mesenteric inflammatory response. Bones: Unremarkable for age.. IMPRESSION: Unremarkable noncontrast CT scan of the abdomen and pelvis. RADIATION DOSE DELIVERED: 374.55mGy.cm Total DLP DATA REPOSITORY: All CT scans at this facility are submitted to the National Radiology Data Registry (NRDR) Dose Index Registry (DIR) with the [employer] (ACR). RADIATION OPTIMIZATION: All CT scans at this facility use at least one of these dose optimization techniques: automated exposure control; mA and/or kV adjustment per patient size (includes targeted exams where dose is matched to clinical indication); or iterative reconstruction.
[2025-03-04 09:10] LABS: HCG Qual (Serum) Negative
--- NOTE | 2025-03-04 09:15 | DI.US_ITS ---
Exam(s) US ABDOMEN LIMITED EXAM: US ABDOMEN LIMITED CLINICAL HISTORY: Right upper quadrant pain TECHNIQUE: Ultrasound of the right upper quadrant performed using standard protocol. COMPARISON: No exams were available for comparison FINDINGS: LIVER: Normal size. Normalechogenicity. No focal liver lesions are seen.. GALLBLADDER: No evidence of cholelithiasis. No evidence of wall thickening. No pericholecystic fluid identified. ZENG'S SIGN: Negative. BILIARY SYSTEM: No intrahepatic or extrahepatic biliary ductal dilation. RIGHT KIDNEY: Normal size. No evidence of renal calculi. No evidence of hydronephrosis. No suspicious renal mass. No cyst identified. PANCREAS: Normal where visualized. ABDOMINAL AORTA AND IVC: Visualized portions normal caliber. ASCITES: None seen. IMPRESSION: Normal sonographic appearance of the right upper quadrant. DATA REPOSITORY:
[2025-03-04 09:40] LABS: Troponin I < 3 ng/L (<35)
[2025-03-04] MEDS: Ketorolac 15 MG/ML VIAL IVP (09:41)
[2025-03-04 09:58] LABS: Troponin I < 3 ng/L (<35)
[2025-03-04] MEDS: Acetaminophen 325 MG TAB 650 MG PO (10:29)
== END 2025-03-04 10:47 | disposition home or self-care (01) ==
PROVIDERS: Emergency Provider Emergency Medicine; PCP Nurse Practitioner Family
DX: R10.11 Right upper quadrant pain (principal); R19.7 Diarrhea, unspecified; N13.30 Unspecified hydronephrosis; R00.1 Bradycardia, unspecified
CPT/HCPCS: 99284; 99285; 36415; 81025; 96374; 76705; 76775; 80053; 83690; 93005; 74176; 84484; 84703; 85025; 93010; J1885